=== PATIENT | female | born 1990 | race Caucasian/White ===

== ENCOUNTER 2017-10-18 22:52 | Emergency (ER) | payer OTHER ==
[2017-10-18] MEDS ORDERED: NS 1,000 ML IV ONE (23:11)
[2017-10-18] MEDS ORDERED: ONDANSETRON 4 MG/2 ML VIAL IVP ONE (23:11)
[2017-10-18 23:47] LABS: PLATELET COUNT 182 10^3/uL (150-400)
[2017-10-19] MEDS ORDERED: NS 1,000 ML IV ONE ×2 (00:33→00:36)
--- NOTE | 2017-10-19 00:46 | EDPHY ---
H & P Stated Complaint: chills, abd pain, and diarrhea started sunday Time Seen by Provider: 10/18/17 23:04 HPI/ROS: Chief complaint: with abdominal pain with nausea and diarrhea History of present illness: This is a 27-year-old female, 1, para 0, approximately 20 weeks who presents to the emergency department for evaluation of abdominal pain with nausea and diarrhea. Symptoms began 2 days ago. Diffuse pain in lower aspect of the abdomen on both the left and the right side. Nausea is been persistent but no vomiting. Multiple episodes of loose watery diarrhea without blood noted in it. No report of fever. Again no vomiting. No urinary symptoms. Further no pelvic cramping, no vaginal discharge or bleeding. She is concerned is has been difficult for her to eat or drink. Review of systems: A 10 point review of systems was obtained and other than described above was negative - Personal History EDC: 03/07/18 Current Tetanus/Diphtheria Vaccine: Unsure Current Tetanus Diphtheria and Acellular Pertussis (TDAP): Unsure - Medical/Surgical History Hx Asthma: No Hx Chronic Respiratory Disease: No Hx Diabetes: No Hx Cardiac Disease: No Hx Renal Disease: No Hx Cirrhosis: No Hx Alcoholism: No Hx HIV/AIDS: No Hx Splenectomy or Spleen Trauma: No Other PMH: denies - Social History Smoking Status: Never smoked - Physical Exam Exam: General Appearance: Alert, nontoxic. Eyes: Pupils equal and round no pallor or injection. ENT, Mouth: Mucous membranes moist. Respiratory: There are no retractions, lungs are clear to auscultation. Cardiovascular: Regular rate and rhythm. Gastrointestinal: Gravid abdomen, otherwise soft, nondistended and nontender. Neurological: Alert and oriented x4. Strength and sensation intact and symmetrical. Skin: Warm and dry, no rashes. Musculoskeletal: Neck is supple non tender. Extremities are symmetrical, full range of motion. Psychiatric: Patient is oriented X 3, there is no agitation. Constitutional: Initial Vital Signs Temperature (C) 36.6 C 10/18/17 22:57 Heart Rate 92 10/18/17 22:57 Respiratory Rate 18 10/18/17 22:57 Blood Pressure 108/64 10/18/17 22:57 O2 Sat (%) 94 10/18/17 22:57 O2 Delivery Mode Room Air Allergies/Adverse Reactions: No Known Allergies Allergy (Unverified 10/18/17 23:00) Home Medications: Medication Instructions Recorded 10/18/17 Medical Decision Making Procedures: heart tones reported in the 150s to 160s by [employer] Course/Re-evaluation: Patient seen in conjunction with my secondary supervising physician Dr. Davy Jay. Patient presents for abdominal pain with nausea and diarrhea. This is in setting of . No complaints in regard to . Good heart tones. Abdomen is rather benign outside of the gravid uterus. She is IV hydrated. Feeling much better. She is is tolerating oral challenges. She will be discharged home. Home care is discussed. Strict return precautions are given. Differential Diagnosis: Included but not limited to gastritis, gastroenteritis colitis, appendicitis, urinary tract disease - Data Points Laboratory Results: Laboratory Results 10/18/17 23:40 10/18/17 23:40 10/19/17 10/18/17 10/18/17 00:38 23:45 23:40 WBC RBC Hgb Hct MCV MCH MCHC RDW Plt Count MPV Neut % (Auto) Lymph % (Auto) Alfalfa % (Auto) Eos % (Auto) Baso % (Auto) Nucleat RBC Rel Count Absolute Neuts (auto) Absolute Lymphs (auto) Absolute Monos (auto) Absolute Eos (auto) Absolute Basos (auto) Absolute Nucleated RBC Immature Gran % Immature Gran # Sodium 134 mEq/L L mEq/L (135-145) Potassium 3.2 mEq/L L mEq/L (3.5-5.2) Chloride 105 mEq/L mEq/L (97-110) Carbon Dioxide 21 mEq/l L mEq/l (22-31) Anion Gap 8 mEq/L mEq/L (8-16) BUN 6 mg/dL L mg/dL (7-23) Creatinine 0.4 mg/dL L mg/dL (0.6-1.0) Estimated GFR > 60 Glucose 87 mg/dL mg/dL (70-100) Calcium 8.3 mg/dL L mg/dL (8.5-10.4) Total Bilirubin 0.3 mg/dL mg/dL (0.1-1.4) Conjugated Bilirubin 0.2 mg/dL mg/dL (0.0-0.5) Unconjugated Bilirubin 0.1 mg/dL mg/dL (0.0-1.1) AST 33 IU/L IU/L (14-46) ALT 36 IU/L IU/L (9-52) Alkaline Phosphatase 56 IU/L IU/L (38-126) Total Protein 5.7 g/dL L g/dL (6.3-8.2) Albumin 3.1 g/dL L g/dL (3.5-5.0) Lipase 68 IU/L IU/L (23-300) Urine Color YELLOW Urine Appearance CLEAR Urine pH 6.0 (5.0-7.5) Ur Specific [place] 1.005 (1.002-1.030) Urine Protein NEGATIVE (NEGATIVE) Urine Ketones NEGATIVE (NEGATIVE) Urine Blood NEGATIVE (NEGATIVE) Urine Nitrate NEGATIVE (NEGATIVE) Urine Bilirubin NEGATIVE (NEGATIVE) Urine Urobilinogen NEGATIVE EU EU (0.2-1.0) Ur Leukocyte Esterase NEGATIVE (NEGATIVE) Urine Glucose NEGATIVE (NEGATIVE) 10/18/17 10/18/17 10/18/17 23:40 23:16 23:16 WBC 8.44 10^3/uL 10^3/uL REJ (3.80-9.50) RBC 3.68 10^6/uL L 10^6/uL REJ (4.18-5.33) Hgb 11.7 g/dL L g/dL REJ (12.6-16.3) Hct 33.3 % L % REJ (38.0-47.0) MCV 90.5 fL fL REJ (81.5-99.8) MCH 31.8 pg pg REJ (27.9-34.1) MCHC 35.1 g/dL g/dL REJ (32.4-36.7) RDW 12.6 % % REJ (11.5-15.2) Plt Count 182 10^3/uL 10^3/uL REJ (150-400) MPV 8.9 fL fL REJ (8.7-11.7) Neut % (Auto) 77.6 % H % REJ (39.3-74.2) Lymph % (Auto) 11.3 % L % REJ (15.0-45.0) Alfalfa % (Auto) 7.5 % % REJ (4.5-13.0) Eos % (Auto) 1.4 % % REJ (0.6-7.6) Baso % (Auto) 0.2 % L % REJ (0.3-1.7) Nucleat RBC Rel Count 0.0 % % REJ (0.0-0.2) Absolute Neuts (auto) 6.55 10^3/uL H 10^3/uL REJ (1.70-6.50) Absolute Lymphs (auto) 0.95 10^3/uL L 10^3/uL REJ (1.00-3.00) Absolute Monos (auto) 0.63 10^3/uL 10^3/uL REJ (0.30-0.80) Absolute Eos (auto) 0.12 10^3/uL 10^3/uL REJ (0.03-0.40) Absolute Basos (auto) 0.02 10^3/uL 10^3/uL REJ (0.02-0.10) Absolute Nucleated RBC 0.00 10^3/uL 10^3/uL REJ (0-0.01) Immature Gran % 2.0 % H % REJ (0.0-1.1) Immature Gran # 0.17 10^3/uL H 10^3/uL REJ (0.00-0.10) Sodium REJ Potassium REJ Chloride REJ Carbon Dioxide REJ Anion Gap REJ BUN REJ Creatinine REJ Estimated GFR REJ Glucose REJ Calcium REJ Total Bilirubin REJ Conjugated Bilirubin REJ Unconjugated Bilirubin REJ AST REJ ALT REJ Alkaline Phosphatase REJ Total Protein REJ Albumin REJ Lipase REJ Urine Color Urine Appearance Urine pH Ur Specific [place] Urine Protein Urine Ketones Urine Blood Urine Nitrate Urine Bilirubin Urine Urobilinogen Ur Leukocyte Esterase Urine Glucose Medications Given: Discontinued Medications Sodium Chloride (Ns) 1,000 mls @ 0 mls/hr IV EDNOW ONE; Wide Open PRN Reason: Protocol Stop: 10/18/17 23:12 Last Admin: 10/18/17 23:22 Dose: 1,000 mls Sodium Chloride (Ns) 1,000 mls @ 0 mls/hr IV ONCE ONE PRN Reason: Wide Open Stop: 10/19/17 00:34 Last Admin: 10/19/17 00:55 Dose: Not Given Sodium Chloride (Ns) 1,000 mls @ 0 mls/hr IV ONCE ONE PRN Reason: Wide Open Stop: 10/19/17 00:37 Last Admin: 10/19/17 00:38 Dose: 1,000 mls Ondansetron HCl (Zofran) 4 mg IVP EDNOW ONE Stop: 10/18/17 23:12 Last Admin: 10/18/17 23:52 Dose: Not Given Departure - Departure Disposition: Home, Routine, Self-Care Clinical Impression: Abdominal pain, Diarrhea Condition: Good Instructions: Dehydration (ED), Acute Abdominal Pain (ED) Additional Instructions: Follow-up with your OBGYN in a primary care doctor in the next 1-2 days for recheck Drink plenty of fluids to stay hydrated If symptoms worsen or new symptoms develop return to the emergency room for recheck Referrals: NONE *PRIMARY CARE P,. [Primary Care Provider] - As per Instructions
[2017-10-19 01:01] VITALS: RESP 16
[2017-10-19 01:16] VITALS: BP 102/60; PULSE 80; TEMP 97.9; O2SAT 96
== END 2017-10-19 01:16 | disposition home or self-care (01) ==
DX: O26.892 Other specified pregnancy related conditions, second trimester (principal); R10.9 Unspecified abdominal pain; R19.7 Diarrhea, unspecified; E86.9 Volume depletion, unspecified; Z3A.20 20 weeks gestation of pregnancy